=== PATIENT | male | born 1980 | race African-American/Black ===

== ENCOUNTER 2018-12-09 09:13 | Emergency (ER) | payer OTHER ==
[~2018-12-09] VITALS: Ht 180.3 cm; Wt 81.7 kg
[2018-12-09] MEDS ORDERED: TRAMADOL 50 MG50 MG PO (10:34)
[2018-12-09] MEDS ORDERED: ROBAXIN 750 MG750 M1 PO (10:34)
[2018-12-09] MEDS ORDERED: MEDROL DOSPAK21 TA1 PO (10:36)
[2018-12-09 11:27] VITALS: BP 114/70
== END 2018-12-09 11:27 | disposition home or self-care (01) ==
LOC: M.ERS 09:13
DX: S39.012A Strain of muscle, fascia and tendon of lower back, initial encounter (principal); M62.830 Muscle spasm of back; M43.17 Spondylolisthesis, lumbosacral region; F17.210 Nicotine dependence, cigarettes, uncomplicated; X58.XXXA Exposure to other specified factors, initial encounter; Y93.89 Activity, other specified; Y92.89 Other specified places as the place of occurrence of the external cause; Y99.8 Other external cause status